=== PATIENT | female | born 1955 | race Caucasian/White ===

== ENCOUNTER → 2016-09-29 | Outpatient (CLI) | payer MEDICAID ==
[~2016-09-29] MED LIST: AMLODIPINE BES10 MG PO; ASPIRIN 81MG TA81 MG PO; ATORVASTATIN CA80 MG PO; CALTRATE 600600 MG PO; CARVEDILOL6.25 M1 PO; CIPRO 500MG TA500 MG PO; CORTISPORIN OTI10 M1 OT; E GEMS PO; FLAGYL 500MG.500 MG PO; FLEXERIL10 MG PO; FLEXERIL5 MG PO; FLUOXETINE HCL40 MG PO; HUMALOG MIX 75/10 ML SC; ISOSORBIDE MONO30 MG PO; JANUMET XR1 TER PO; LEVOTHYROXINE0.15 M1 PO; MAXZIDE 25 MG-31 TAB PO; NEXIUM40 MG PO; NORCO 325 MG-51 TAB PO; NORVASC 5MG. TAB5 MG PO; OMEPRAZOLE20 MG PO; PANTOPRAZOLE SO40 MG PO; PHENERGAN 25MG.25 M1 PO; PRAVASTATIN SOD80 MG PO; PRILOSEC20 M1 PO; PROZAC40 MG PO; SYNTHROID0.137 MG PO; ULTRAM50 MG PO
[2016-09-29 13:47] LABS: HEMOGLOBIN 12.3 g/dL (12.2-16.2); LYMPH # 1.2 K/mm3 (0.7-4.5); LYMPH % 26.3 % (10-50.0)
[2016-09-29 14:06] LABS: BUN 14 mg/dL (7-18)
[2016-09-29 14:08] LABS: GFR (ESTIMATED) 74 ML/MIN (59-)
== END ==
LOC: CARL-LAB 09:18
PROVIDERS: Nurse Practitioner Family
DX: E55.9 Vitamin D deficiency, unspecified (principal); A09 Infectious gastroenteritis and colitis, unspecified; R06.09 Other forms of dyspnea; R60.9 Edema, unspecified; E03.9 Hypothyroidism, unspecified